=== PATIENT | female | born 1960 | race Caucasian/White ===

== ENCOUNTER 2017-08-19 10:52 | Emergency (ER) | payer BC ==
[2017-08-19 11:06] VITALS: BP 130/76
--- NOTE | 2017-08-19 11:19 | UC ---
Throat Pain/Nasal Eyal HPI - HPI Summary HPI Summary: 3 days off worsening pain under right side of tongue, swollen anterior cervical gland on right --no fevers chills, no difficulty swallowing - History of Current Complaint Chief Complaint: UCRespiratory Stated Complaint: SWOLLEN NECK/MOUTH Time Seen by Provider: 08/19/17 11:02 Hx Obtained From: Patient ?: No Onset/Duration: Gradual Onset, Lasting Days - 3 Severity: Moderate Pain Intensity: 6 Pain Scale Used: 0-10 Numeric Cough: None Associated Signs & Symptoms: Positive: Negative - Allergies/Home Medications Allergies/Adverse Reactions: Allergies Allergy/AdvReac Type Severity Reaction Status Date / Time No Known Allergies Allergy Verified 08/19/17 11:06 Home Medications: Home Medications Ibuprofen [Ibuprofen 200 MG] 600 mg PO PRN 08/19/17 [History] PMH/Surg Hx/FS Hx/Imm Hx Previously Healthy: Yes - had similar when she was a child - Surgical History Surgical History: Yes Surgery Procedure, Year, and Place: x 2 - Family History Known Family History: Positive: None - Social History Occupation: Employed Full-time Lives: With Family Alcohol Use: Rare Substance Use Type: None Smoking Status (MU): Never Smoked Tobacco Review of Systems Constitutional: Negative Skin: Negative Eyes: Negative ENT: Negative, Other - Swelling under right side of tongue and submental glands Respiratory: Negative Cardiovascular: Negative Gastrointestinal: Negative Genitourinary: Negative Motor: Negative Neurovascular: Negative Musculoskeletal: Negative Neurological: Negative Psychological: Negative Is Patient Immunocompromised?: No All Other Systems Reviewed And Are Negative: Yes Physical Exam Triage Information Reviewed: Yes Appearance: Well-Appearing, No Pain Distress, Well-Nourished Vital Signs: Initial Vital Signs Temp 98.1 F 08/19/17 10:57 Pulse 92 08/19/17 10:57 Resp 16 08/19/17 10:57 BP 130/76 08/19/17 10:57 Pulse Ox 100 08/19/17 10:57 Vital Signs Reviewed: Yes Eye Exam: Normal Eyes: Positive: Conjunctiva Clear ENT Exam: Normal ENT: Positive: Normal ENT inspection, Hearing grossly normal, Pharynx normal, TMs normal, Other: - swelling with stone right sublingual gland and submandibular gland swelling. Negative: Nasal congestion, Nasal drainage, Trismus, Muffled/hoarse voice Dental Exam: Normal Neck exam: Normal Neck: Positive: 1 Respiratory Exam: Normal Cardiovascular Exam: Normal Abdominal Exam: Normal Musculoskeletal Exam: Normal Neurological Exam: Normal Psychological Exam: Normal Skin Exam: Normal Throat Pain/Nasal Course/Dx - Course Assessment/Plan: increase fluids, frequent lemon drops, tylenol ibuprofen follow with pcp prn - Differential Dx/Diagnosis Provider Diagnoses: Sublinguial stone Discharge - Discharge Plan Condition: Stable Disposition: HOME Patient Education Materials: Ibuprofen (By mouth), Sialoadenitis (ED) Referrals: [facility] [Outside] - If Needed Additional Instructions: Lemon Drops are extremely helpful in producing saliva and opening the clogged duct
== END 2017-08-19 11:40 | disposition home or self-care (01) ==
LOC: UCCORT 10:52
DX: K11.5 Sialolithiasis (principal)
CPT/HCPCS: 99201; G0463